=== PATIENT | female | born 1990 | race Caucasian/White ===

== ENCOUNTER 2017-04-23 23:49 | Day surgery (SDC) | payer SELFPAY ==
[~2017-04-23] VITALS: Ht 157.5 cm; Wt 50.0 kg
[2017-04-24] VITALS (8 sets, daily range): BP systolic 99–116; BP diastolic 56–73
[2017-04-24] MEDS ORDERED: NS 1,000 ML IV ONE (01:15)
[2017-04-24 01:18] LABS: BASO # 0.1 10^3/uL (0.0-0.2); BASO % 0.3 % (0.0-1.0); EOS % 0.2 % (0.0-3.0); IMMATURE GRANULOCYTE % 0.4 % (0-0); LYMPH # 1.1 10^3/uL (1.5-6.5); LYMPH % 7.2 % (24.0-44.0); MEAN CORPUSCULAR HEMOGLOBIN 31.6 pg (27.0-33.0); MEAN CORPUSCULAR HGB CONC 34.4 g/dl (32.0-36.5); MONO # 0.9 10^3/uL (0.0-0.8); MONO % 5.7 % (0.0-5.0); NEUTROPHILS # 13.7 10^3/uL (1.8-7.7); NEUTROPHILS % 86.2 % (36.0-66.0); PLATELET COUNT, AUTOMATED 251 10^3/uL (150-450); RED CELL DISTRIBUTION WIDTH 11.6 % (11.5-14.5); WHITE BLOOD COUNT 15.9 10^3/uL (4.0-10.0)
[2017-04-24 01:29] LABS: ALBUMIN 4.1 GM/DL (3.2-5.2); ALBUMIN/GLOBULIN RATIO 1.08 (1.00-1.93); ALKALINE PHOSPHATASE 48 U/L (45-117); ALT/SGPT 13 U/L (12-78); ANION GAP 7 MEQ/L (8-16); AST/SGOT 15 U/L (7-37); BILIRUBIN,DIRECT 0.1 MG/DL (0.0-0.2); BILIRUBIN,TOTAL 0.8 MG/DL (0.2-1.0); BLOOD UREA NITROGEN 9 MG/DL (7-18); CARBON DIOXIDE LEVEL 26 MEQ/L (21-32); CHLORIDE LEVEL 107 MEQ/L (98-107); GLOMERULAR FILTRATION RATE > 60.0 (>60); GLUCOSE, FASTING 93 MG/DL (70-105); POTASSIUM SERUM 3.5 MEQ/L (3.5-5.1); SODIUM LEVEL 140 MEQ/L (136-145); TOTAL PROTEIN 7.9 GM/DL (6.4-8.2)
[2017-04-24 01:32] LABS: CONTROL LINE UCG INT CTR LINE PRESENT
[2017-04-24] MEDS ORDERED: ISOVUE-370 76% 100ML VIAL (Q9967) As Ordered ONE (01:47)
--- NOTE | 2017-04-24 03:20 | REPUSA ---
CLINICAL HISTORY: Abdominal pain. TECHNIQUE: Multiple axial, sagittal and coronal CT images were obtained through the abdomen and pelvi s after administration of intravenous contrast material. COMMENTS: Enlarged appendix measuring 1.2 cm in its largest transverse dimension. Abnormal enhancement and thickening of the wall of the appendix. Surrounding fat stranding and small amount of free fluid in the pelvis. Fluid-filled small bowel, probably mild ileus. The liver is of uniform attenuation without mass or defect. There is no intra or extrahepatic biliary ductal dilatation. The spleen is normal. The gallbladder is within normal limits. The pancreas is of normal contour and attenuation characteristics. There is no evidence of adrenal mass. Both kidneys demonstrate prompt and equal nephrograms. The kidneys are normal in size, shape and conf iguration. There is no evidence of renal or ureteral mass. No renal or ureteral calculi are identifie d. There is no hydroureter or hydronephrosis. There is no bowel wall thickening. No evidence for small or large bowel obstruction. There is no henok dence of abdominal ascites or lymphadenopathy. There is no evidence of intrinsic or extrinsic bladder mass. There is no pelvic ascites or lymphadeno chelle. Images of the lung bases show no evidence of pleural or parenchymal mass. There are no pleural effusi ons. The bony structures are free of lytic or blastic lesions. IMPRESSION: Acute appendicitis. No perforation or abscess formation. Thickened bladder, probably reactive cystitis. Reactive small bowel ileus. Thank you for your kind referral of this patient.
[2017-04-24] MEDS ORDERED: PIPERACILLIN/TAZOBACTAM SOD 3.375 GM in D5W 50 ML IV ONE (03:45)
[2017-04-24] MEDS ORDERED: ONDANSETRON 4MG/2ML VIAL (J2405) IV ONE (03:45)
[2017-04-24] MEDS ORDERED: MORPHINE 4 MG/ML 1ML SYRINGE IV PRN (03:45)
[2017-04-24] MEDS ORDERED: IBUPOTC PO (03:53)
[2017-04-24] MEDS ORDERED: LIDOCAINE 2% INJ 100 MG/5 ML SDV (FOR ANES.) As Ordered ONE (04:31)
[2017-04-24] MEDS ORDERED: ROCURONIUM BROMIDE 50 MG/5 ML VIAL/SYRINGE As Ordered ONE (04:31)
[2017-04-24] MEDS ORDERED: PROPOFOL 200 MG/20 ML VIAL As Ordered ONE (04:31)
[2017-04-24] MEDS ORDERED: fentaNYL 100 MCG/2 ML INJECTION (J3010) As Ordered ONE ×2 (04:32→06:10)
[2017-04-24] MEDS ORDERED: MIDAZOLAM INJ 2 MG/2 ML VIAL (J2250) As Ordered ONE (04:32)
[2017-04-24] MEDS ORDERED: BUPIVACAINE/EPIN 0.25% 30 ML VIAL As Ordered ONE (04:54)
[2017-04-24] MEDS ORDERED: PHENYLephrine HCL 500 MCG/5 ML (100MCG/ML) SYRINGE (J2370) As Ordered ONE (05:41)
[2017-04-24] MEDS ORDERED: ONDANSETRON 4MG/2ML VIAL (J2405) As Ordered ONE (05:49)
[2017-04-24] MEDS ORDERED: KETOROLAC 60 MG/2 ML VIAL (J1885) As Ordered ONE (05:49)
[2017-04-24] MEDS ORDERED: NEOSTIGMINE 10 MG/10 ML VIAL (J2710) As Ordered ONE (05:50)
[2017-04-24] MEDS ORDERED: GLYCOPYRROLATE INJ 0.2 MG/ML 2 ML VIAL As Ordered ONE (05:50)
[2017-04-24] MEDS: KETOROLAC 30 MG/ML VIAL (J1885) IV SCH ×3 (06:00→18:07)
[2017-04-24] MEDS ORDERED: METOCLOPRAMIDE INJ 10MG/2ML VIAL (J2765) IV PRN (06:30)
[2017-04-24] MEDS ORDERED: PERCOCET 5MG/325MG TAB PO PRN (06:30)
[2017-04-24] MEDS ORDERED: LR 1,000 ML IV SCH ×2 (06:30→07:00)
[2017-04-24] MEDS ORDERED: fentaNYL 100 MCG/2 ML INJECTION (J3010) IV PRN (06:30)
[2017-04-24] MEDS ORDERED: ONDANSETRON 4MG/2ML VIAL (J2405) IV PRN ×2 (06:30→07:15)
[2017-04-24] MEDS ORDERED: MORPHINE 2 MG/ML 1ML SYRINGE IV PRN (07:00)
[2017-04-24] MEDS: NORCO, ANEXSIA 5/325MG TABLET (HYDROcodone/ACETAMINOPHEN) PO PRN ×2 (13:04→21:20)
[2017-04-24] MEDS ORDERED: SLF 3 ML SYR IV PRN (15:45)
[2017-04-24] MEDS ORDERED: SLF 3 ML SYR IV SCH (22:00)
== END 2017-04-24 22:30 | disposition home or self-care (01) ==
LOC: M ED 23:49 → M SDC 04-24 04:24 → M PED 04-24 07:30 → M SDC 04-24 22:30
PROVIDERS: ATTEND Surgery
DX: K35.89 Other acute appendicitis (principal)
CPT/HCPCS: 36415; 44970; 74177; 80048; 80076; 81001; 83690; 84703; 85025; 88304; 96361; 96374; 96375; 96376; 99284; J1885; J2250; J2370; J2405; J2543; J2710; J3010; Q9967

== ENCOUNTER 2018-04-15 21:34 | Emergency (ER) | payer SELFPAY ==
[2018-04-15] MEDS: KETOROLAC 30 MG/ML VIAL (J1885) IV (22:18)
[2018-04-15 22:22] LABS: BASO % 0.4 % (0.0-1.0); EOS # 0.1 10^3/uL (0.0-0.50); EOS % 2.1 % (0.0-3.0); HEMATOCRIT 39.5 % (36.0-47.0); HEMOGLOBIN 13.1 g/dl (12.0-15.5); IMMATURE GRANULOCYTE % 0.4 % (0-3.0); LYMPH # 1.6 10^3/uL (1.5-6.5); LYMPH % 31.2 % (24.0-44.0); MEAN CORPUSCULAR HEMOGLOBIN 31.6 pg (27.0-33.0); MEAN CORPUSCULAR HGB CONC 33.2 g/dl (32.0-36.5); MEAN CORPUSCULAR VOLUME 95.2 fl (80.0-96.0); MONO # 0.5 10^3/uL (0.0-0.8); NEUTROPHILS # 2.9 10^3/uL (1.8-7.7); NEUTROPHILS % 56.9 % (36.0-66.0); PLATELET COUNT, AUTOMATED 225 10^3/uL (150-450); RED BLOOD COUNT 4.15 10^6/uL (4.00-5.40); RED CELL DISTRIBUTION WIDTH 11.4 % (11.5-14.5); WHITE BLOOD COUNT 5.1 10^3/uL (4.0-10.0)
[2018-04-15 22:35] LABS: D-DIMER QUANT 329.6 ng/ml (<500)
[2018-04-15 23:12] LABS: ANION GAP 7 MEQ/L (8-16); BLOOD UREA NITROGEN 12 MG/DL (7-18); CALCIUM LEVEL 8.8 MG/DL (8.5-10.1); CARBON DIOXIDE LEVEL 28 MEQ/L (21-32); CHLORIDE LEVEL 105 MEQ/L (98-107); CPK CREATINE PHOSPHOKINASE 104 U/L (26-192); CREATININE FOR GFR 0.57 MG/DL (0.55-1.30); GLOMERULAR FILTRATION RATE > 60.0 (>60); GLUCOSE, FASTING 103 MG/DL (70-100); HCG, SERUM QUANTITATIVE < 1.0 MIU/ML; MB/CK RELATIVE INDEX 1.15 (< OR =4); POTASSIUM SERUM 3.9 MEQ/L (3.5-5.1); SODIUM LEVEL 140 MEQ/L (136-145); TROPONIN I < 0.02 NG/ML (< 0.10)
== END 2018-04-15 23:50 | disposition home or self-care (01) ==
LOC: M ED 21:34
DX: R07.89 Other chest pain (principal)
CPT/HCPCS: J1885

== ENCOUNTER 2019-01-03 16:11 | Emergency (ER) | payer SELFPAY ==
[~2019-01-03] VITALS: Ht 157.5 cm; Wt 52.3 kg
[~2019-01-03 16:11] MED LIST: IBUPOTC PO
[2019-01-03 17:41] LABS: APPEARANCE, URINE CLEAR (CLEAR); BACTERIA, URINE AUTO NEGATIVE (NEGATIVE); BILIRUBIN, URINE AUTO NEGATIVE (NEGATIVE); BLOOD, URINE BLOOD 2+ (NEGATIVE); COLOR, URINE YELLOW (YELLOW); GLUCOSE, URINE (UA) AUTO NEGATIVE (NEGATIVE); KETONE, URINE AUTO NEGATIVE (NEGATIVE); LEUKOCYTE ESTERASE, URINE AUTO NEGATIVE (NEGATIVE); NITRITE, URINE AUTO NEGATIVE (NEGATIVE); PROTEIN, URINE AUTO NEGATIVE (NEGATIVE); RBC, URINE AUTO 1 /HPF (0-3); SPECIFIC GRAVITY URINE AUTO 1.009 (1.002-1.035); SQUAMOUS EPITHELIAL CELL UR AU 1 /HPF (0-6); UROBILINOGEN, URINE AUTO 0.2 mg/dL (0.0-2.0); WBC, URINE AUTO 1 /HPF (0-3)
[2019-01-03 18:56] VITALS: BP 105/64
--- NOTE | 2019-01-03 19:26 | REPVR ---
EXAM: US , Transvaginal EXAM DATE/TIME: 01/03/2019 5:29 PM CLINICAL HISTORY: 28 years old, female; complicated by abdominal or pelvic pain; Right upper quadrant; First trimester; Gestational age or lmp: 5wks; ; Additional info: 5 weeks , trauma TECHNIQUE: Imaging protocol: Real-time transvaginal obstetrical ultrasound of the maternal pelvis and a first trimester with image documentation. Transvaginal imaging was used for better evaluation of the fetus and adnexa. COMPARISON: No relevant prior studies available. FINDINGS: Other findings: No adnexal mass. GESTATION: Gestation: No pole. No gestational sac. No yolk sac. Heart rate: No cardiac activity detected. MATERNAL: Uterus: Uterus measures 7.2 x 4.3 x 5.8 cm. Endometrial echocomplex measures 11.6 mm maximally. Intraperitoneal: Minimal free fluid in the cul-de-sac. IMPRESSION: Empty uterus in a patient who is reportedly . Finding may indicate very early IUP prior to visualization of a gestational sac or fetus. Correlation with serial beta-hCG levels and follow ultrasound recommended in order to exclude ectopic verses very early or early failure. Electronically signed by: Chris Flores On 01/03/2019 19:25:59 PM
--- NOTE | 2019-01-05 07:51 | REP ---
Chest, single PA view: Comparison is 04/15/2018. There is no pneumothorax, hemothorax or pulmonary contusion. No fractures are identified. Lung toscano are clear. Cardiac size is normal. The paula, mediastinum, skeletal structures are unremarkable. There is no interval change. Impression: Negative PA chest. Electronically Signed by Denton Ceballos MD 01/04/2019 08:07 A
== END 2019-01-03 20:27 | disposition home or self-care (01) ==
LOC: M ED 16:11
DX: O9A.211 Injury, poisoning and certain other consequences of external causes complicating pregnancy, first trimester (principal); S30.810A Abrasion of lower back and pelvis, initial encounter; S30.0XXA Contusion of lower back and pelvis, initial encounter; X58.XXXA Exposure to other specified factors, initial encounter; Y92.89 Other specified places as the place of occurrence of the external cause; Z3A.01 Less than 8 weeks gestation of pregnancy

== ENCOUNTER 2019-10-18 00:20 | Inpatient (IN) | payer SELFPAY ==
[2019-10-18] VITALS (29 sets, daily range): BP systolic 50–123; BP diastolic 27–71
[~2019-10-18] VITALS: Ht 157.5 cm; Wt 80.0 kg
[2019-10-18] MEDS ORDERED: LR 1,000 ML IV SCH (01:20)
[2019-10-18] MEDS ORDERED: LACTATED RINGER'S 1000 ML IV STA (01:20)
[2019-10-18] MEDS ORDERED: OXYTOCIN DRIP 30 UNITS in IV 1 EA IV SCH (01:24)
[2019-10-18] MEDS ORDERED: ACETAMINOPHEN 500 MG TAB PO PRN (01:30)
[2019-10-18] MEDS ORDERED: METHYLERGONOVINE MALEATE 0.2 MG TAB PO PRN (01:30)
[2019-10-18] MEDS ORDERED: OXYTOCIN INJ 10 UNITS/ML VIAL (J2590) IM ONE (01:30)
[2019-10-18] MEDS ORDERED: IBUPROFEN 600 MG TAB PO PRN (01:30)
[2019-10-18] MEDS ORDERED: DOCUSATE SODIUM 100 MG CAP PO PRN (01:30)
[2019-10-18] MEDS ORDERED: RHOGAM 300 MCG (1500 IU) INJ (J2790) IM SCH (01:30)
[2019-10-18] MEDS ORDERED: LIDOCAINE 1% MDV 20ML VIAL INFIL ONE (01:30)
[2019-10-18] MEDS ORDERED: DIBUCAINE 1% OINTMENT 30GM TOP PRN (01:30)
[2019-10-18] MEDS ORDERED: ANUSOL HC CREAM 30GM TOP PRN (01:30)
[2019-10-18] MEDS ORDERED: MOM 30ML SUSPENSION UDC PO PRN (01:30)
[2019-10-18] MEDS ORDERED: MEASLES,MUMPS,RUBELLA VACCINE INJ (MMR-II) (90707) SC SCH (01:30)
[2019-10-18] MEDS ORDERED: IBUPROFEN 800 MG TAB PO PRN (01:30)
[2019-10-18 01:32] LABS: HEMATOCRIT 28.4 % (36.0-47.0); HEMOGLOBIN 9.6 g/dl (12.0-15.5); MEAN CORPUSCULAR HEMOGLOBIN 33.3 pg (27.0-33.0); MEAN CORPUSCULAR HGB CONC 33.8 g/dl (32.0-36.5); MEAN CORPUSCULAR VOLUME 98.6 fl (80.0-96.0); PLATELET COUNT, AUTOMATED 193 10^3/uL (150-450); RED BLOOD COUNT 2.88 10^6/uL (4.00-5.40); WHITE BLOOD COUNT 12.5 10^3/uL (4.0-10.0)
[2019-10-18 01:33] LABS: CORD GAS ABE A -2.3; CORD GAS ABE V -1.9; CORD GAS HCO3 A 24.7 MEQ/L; CORD GAS HCO3 V 22.7 MEQ/L; CORD GAS O2 SAT A 44.6 %; CORD GAS O2 SAT V 55.1 %; CORD GAS PCO2 A 50.4 mmHg; CORD GAS PCO2 V 38.4 mmHg; CORD GAS PH A 7.308 UNITS; CORD GAS PH V 7.389 UNITS; CORD GAS PO2 A 20.7 mmHg; CORD GAS PO2 V 23.4 mmHg; CORD GAS SBC A 21.2 MEQ/L; CORD GAS SBC V 21.8 MEQ/L; CORD GAS TCO2 A 26.2 MEQ/L; CORD GAS TCO2 V 23.8 MEQ/L
--- NOTE | 2019-10-18 01:52 | HPEPDOC ---
Obstetrical History & Physical General Date of Admission October 18, 2019 at 00:20 History of Present Illness 29-year-old 2, para 1 who presents at 38 weeks 4 days estimated gestational age with complaints of contractions. She presents as unregistered patient. She is [employer] descent. 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 Initially, her care with Amelie Dobson Chief Complaint: Contractions, term Information Provided By: Patient Age: 29 : 2 Term: 1 Dating Final EDC: October 23, 2019 Final EDC by: LMP Past Medical History Past Obstetrical History : Past Obstetrical History: Multigravida Type of Delivery: Spontaneous Vaginal Del. Sex of : Female Past Medical History Surgical History: Appendectomy Social History Marital Status: Psychosocial History: No pertinent psych hx * Smoker: non-smoker Alcohol: Denies Drugs: denies Allergies Coded Allergies: No Known Allergies (Unverified , 04/23/17) Physical Examination Physical Examination GENERAL: Alert and oriented times three. BREAST: . ABDOMEN: Gravid and non-tender to touch. FETUS: Is vertex (VTX) by sterile vaginal examination (SVE), fetus is vertex (VTX) by Héctor. Laboratory Data [facility] Laboratory Tests 2 10/18/19 00:58: Cord Arterial Blood pH 7.308, Cord Arterial Blood PCO2 50.4, Cord Arterial Blood PO2 20.7, Cord Arterial Blood HCO3 24.7, Cord Arterial Blood Total CO2 26.2, Cord Arterial Blood Base Excess -2.3, Cord Arterial Base Excess (Standard 21.2, Cord Arterial Bld Oxygen Saturation 44.6, Cord Venous Blood pH 7.389, Cord Venous Blood PCO2 38.4, Cord Venous Blood PO2 23.4, Cord Venous Blood HCO3 22.7, Cord Venous Blood Total CO2 23.8, Cord Venous Base Excess (Actual) -1.9, Cord Venous Base Excess (Standard) 21.8, Cord Venous Blood Oxygen Saturation 55.1 10/18/19 01:10: Nucleated Red Blood Cells % (auto) 0.0 CBC/BMP Laboratory Tests 10/18/19 01:10 Vaginal Examination Dilation: 8 cm Effacement: 100% Station: 0 Cervical Consistency: Soft Cervical Position: Anterior Assessment/Plan Assessment 29-year-old 2, para 1 in active labor Known esophageal and cardiac anomaly -Dr. Herron neonatologists notified requested delivery. -Anticipate precipitous delivery Plan Admit and orient. Patient Safety Tech and consent. Labs and intravenous (IV) per unit protocol. Anticipate normal spontaneous delivery (). C-S as appropriate. SOFI AARON MD. October 18, 2019 01:52
--- NOTE | 2019-10-18 01:55 | DNPDOC ---
[facility] Delivery Note Delivery Note DATE OF DELIVERY: 10/18/2019 TIME OF : 0050 GENDER:, Male. APGARS: 1, 3, 6. WEIGHT: 2974 grams LACERATIONS:. Clitoris laceration ANESTHESIA:. None. ESTIMATED BLOOD LOSS:. 1500 mL COUNTS: 5 laparotomy sponges accounted for prior to after delivery. Three sharps removed delivery field. COMPLICATION: hemorrhage due to clitoris laceration GASSES: 7.3 and 7.38 with base excess is -2.3, -1.9 respectively DELIVERY NOTE: 10/18/2019, had a spontaneous vaginal delivery of viable male , Apgars 1, 3 and 6. Head was delivered occiput anterior (OA). Nuchal cord was manually reduced followed by delivery of the shoulders and corpus. Cord was clamped times two and was cut by the father of baby under my direction. Infant was taken to the warmer where NICU staff awaited. Placenta was then drained and delivered grossly intact. A premixed bag of 500 mL of normal saline with 30 units of Pitocin was then bolused along with uterine massage until the uterus was firm. On inspection, there was brisk vaginal bleeding from a clitoris laceration. This was quickly infused with 1% lidocaine with the [id number] stitch was placed for hemostasis by that time, there was appro ximately 1500 mL blood loss. On reinspection, cervix, vagina, perineum was grossly intact and hemostatic. Patient was noted to be hypotensive at this time and tachycardic. Instructions was given to place IV with IV bolus. Patient was typed and cross 4 units of packed red blood cells. 2 units of packed red blood cells was rapidly infused over 10 minutes. Cheondoism of patient's blood pressure and pulse. Patient remained in labor and delivery for monitoring. Anticipate given another units of packed red blood cell. was stabilized and was sent to SOFI Webb MD. October 18, 2019 01:55
[2019-10-18] MEDS ORDERED: diphenhydrAMINE 25MG CAP PO ONE (02:15)
[2019-10-18] MEDS: ACETAMINOPHEN TAB 650MG DOSE (2X325MG) PO PRN ×2 (02:17→05:21)
[2019-10-18] MEDS ORDERED: OXYTOCIN 30 UNITS IN 0.9% NaCl 500ML IV BAG (J2590) As Ordered ONE (05:25)
[2019-10-18 06:41] LABS: HEMATOCRIT 24.6 % (36.0-47.0); HEMOGLOBIN 8.5 g/dl (12.0-15.5); MEAN CORPUSCULAR HEMOGLOBIN 32.6 pg (27.0-33.0); MEAN CORPUSCULAR HGB CONC 34.6 g/dl (32.0-36.5); MEAN CORPUSCULAR VOLUME 94.3 fl (80.0-96.0); PLATELET COUNT, AUTOMATED 136 10^3/uL (150-450); RED BLOOD COUNT 2.61 10^6/uL (4.00-5.40)
[2019-10-18] MEDS ORDERED: PRENATAL VITAMINS CHEWABLE TABLET PO SCH (09:00)
[2019-10-18 14:21] LABS: HEMATOCRIT 27.9 % (36.0-47.0); HEMOGLOBIN 9.6 g/dl (12.0-15.5); MEAN CORPUSCULAR HEMOGLOBIN 31.7 pg (27.0-33.0); MEAN CORPUSCULAR HGB CONC 34.4 g/dl (32.0-36.5); MEAN CORPUSCULAR VOLUME 92.1 fl (80.0-96.0); PLATELET COUNT, AUTOMATED 145 10^3/uL (150-450); RED BLOOD COUNT 3.03 10^6/uL (4.00-5.40); WHITE BLOOD COUNT 17.2 10^3/uL (4.0-10.0)
== END 2019-10-18 17:00 | disposition home or self-care (01) | DRG 560 ==
LOC: M LDI 00:20 → M OBS 09:42
PROVIDERS: ADMIT Obstetrics & Gynecology; ATTEND Obstetrics & Gynecology
PROC: 10E0XZZ Delivery of Products of Conception, External Approach (ICD-10-PCS; principal; 2019-10-18)
PROC: 0HQ9XZZ Repair Perineum Skin, External Approach (ICD-10-PCS; 2019-10-18)
PROC: 30233N1 Transfusion of Nonautologous Red Blood Cells into Peripheral Vein, Percutaneous Approach (ICD-10-PCS; 2019-10-18)
DX: O62.3 Precipitate labor (principal); O69.81X0 Labor and delivery complicated by cord around neck, without compression, not applicable or unspecified; O72.1 Other immediate postpartum hemorrhage; O70.0 First degree perineal laceration during delivery; Z37.0 Single live birth; Z3A.38 38 weeks gestation of pregnancy; I95.9 Hypotension, unspecified; R00.0 Tachycardia, unspecified; O99.89 Other specified diseases and conditions complicating pregnancy, childbirth and the puerperium

== ENCOUNTER 2024-06-23 13:20 | Outpatient (CLI) | payer SELFPAY ==
[~2024-06-23] VITALS: Ht 157.5 cm; Wt 77.3 kg
[2024-06-23] MEDS ORDERED: PRENTAB9 PO (13:42)
[2024-06-23] MEDS ORDERED: CALC500C16 PO (13:42)
[2024-06-23] MEDS ORDERED: K 10100T PO (13:42)
[2024-06-23] MEDS ORDERED: EQL50TAB2 PO (13:42)
[2024-06-23 13:44] VITALS: BP 109/74
[2024-06-23 16:05] VITALS: BP 112/63
== END 2024-06-23 20:41 | disposition home or self-care (01) ==
LOC: M LDO 13:20
PROVIDERS: ATTEND Obstetrics & Gynecology
DX: O40.3XX9 Polyhydramnios, third trimester, other fetus (principal); O35.1 Maternal care for (suspected) chromosomal abnormality in fetus; Z3A.39 39 weeks gestation of pregnancy
CPT/HCPCS: 59025; 76811; 76820; G0463

== ENCOUNTER 2024-06-25 07:10 | Inpatient (IN) | payer SELFPAY ==
[~2024-06-25] VITALS: Ht 157.5 cm; Wt 78.5 kg
[2024-06-25] VITALS (9 sets, daily range): BP systolic 102–119; BP diastolic 64–72; TEMP 98.5; O2SAT 97–100
[~2024-06-25 07:10] MED LIST changes: +CALC500C16 PO; +EQL50TAB2 PO; +K 10100T PO; +PRENTAB9 PO
[2024-06-25 08:47] LABS: HEMATOCRIT 33.4 % (36.0-47.0); HEMOGLOBIN 11.4 g/dl (12.0-15.5); MEAN CORPUSCULAR HEMOGLOBIN 33.2 pg (27.0-33.0); MEAN CORPUSCULAR HGB CONC 34.1 g/dl (32.0-36.5); MEAN CORPUSCULAR VOLUME 97.4 fl (80.0-96.0); PLATELET COUNT, AUTOMATED 165 10^3/uL (150-450); RED BLOOD COUNT 3.43 10^6/uL (4.00-5.40); WHITE BLOOD COUNT 8.3 10^3/uL (4.0-10.0)
[2024-06-25] MEDS: DOCUSATE SODIUM 100MG CAPSULE PO SCH (09:00)
[2024-06-25] MEDS: PRENATAL VITAMINS CHEWABLE TABLET PO SCH (09:00)
[2024-06-25] MEDS ORDERED: TRANEXAMIC ACID INJection 1,000 MG in NS 100 ML IV PRN (09:05)
[2024-06-25] MEDS ORDERED: METHYLERGONOVINE MALEATE 0.2MG/ML 1ML VIAL IM PRN (09:05)
[2024-06-25] MEDS ORDERED: LIDOCAINE 1% MDV 20ML VIAL INFIL PRN (09:05)
[2024-06-25] MEDS ORDERED: CARBOPROST TROMETHAMINE 250 MCG/ML AMP IM PRN (09:05)
[2024-06-25] MEDS ORDERED: OXYTOCIN DRIP 30 UNITS in IV 1 EA IV PRN (09:05)
[2024-06-25] MEDS: BICITRA 30ML SOLN UDC PO ONE (09:30)
[2024-06-25] MEDS: ceFAZolin SOD 2 GM in IV 1 EA IV ONE (09:30)
[2024-06-25] MEDS: AZITHROMYCIN INJ 500 MG, VIAL MATE ADAPTER 1 EACH in NS 250 ML IV ONE (09:30)
[2024-06-25] MEDS: LACTATED RINGER'S 1000 ML IV STA (09:47)
[2024-06-25] MEDS: LR 1,000 ML IV SCH ×2 (09:47→22:06)
[2024-06-25] MEDS ORDERED: OXYTOCIN 30UNITS IN 0.9% NaCl 500ML IV BAG As Ordered ONE (10:11)
[2024-06-25] MEDS ORDERED: ACETAMINOPHEN 1000MG/100ML IV BAG As Ordered ONE (10:11)
[2024-06-25] MEDS ORDERED: SUCCINYLCHOLINE 100MG/5ML SYRINGE As Ordered ONE (10:11)
[2024-06-25] MEDS ORDERED: TRANEXAMIC ACID 100 MG/ML 10ML VIAL As Ordered ONE (10:11)
[2024-06-25] MEDS ORDERED: propofoL 200 MG/20 ML VIAL As Ordered ONE (10:11)
[2024-06-25] MEDS ORDERED: ePHEDrine SULFATE 25 MG/5 ML(5MG/ML) SYRINGE As Ordered ONE (10:11)
[2024-06-25] MEDS ORDERED: PHENYLephrine 500MCG 5ML (100MCG/ML) SYRINGE As Ordered ONE (10:11)
[2024-06-25] MEDS ORDERED: ONDANSETRON 4MG 2ML VIAL As Ordered ONE (10:11)
[2024-06-25] MEDS ORDERED: MORPHINE PRES-FREE INJ 10 MG/10 ML VIAL As Ordered ONE (10:11)
[2024-06-25] MEDS ORDERED: PERCOCET 5MG/325MG TAB PO PRN (11:30)
[2024-06-25] MEDS ORDERED: ANUSOL HC CREAM 30GM TOP PRN (11:30)
[2024-06-25] MEDS ORDERED: RHOGAM 300MCG (1500IU) INJ IM SCH (11:30)
[2024-06-25] MEDS ORDERED: CALCIUM CARBONATE 500 MG CHEW U/D PO PRN (11:30)
[2024-06-25] MEDS ORDERED: MORPHINE 4 MG/ML 1ML VIAL IV PRN (11:30)
[2024-06-25] MEDS ORDERED: IBUP80TA PO (11:43)
[2024-06-25] MEDS ORDERED: PERCOCET PO (11:43)
[2024-06-25] MEDS ORDERED: COLA100C5 PO (11:43)
[2024-06-25] MEDS: OXYTOCIN DRIP 30 UNITS in IV 1 EA IV SCH (12:51)
[2024-06-25] MEDS: KETOROLAC 30 MG/ML 1ML VIAL IV SCH (15:29)
[2024-06-25] MEDS: ONDANSETRON 4MG 2ML VIAL IV PRN (18:33)
[2024-06-25 19:09] LABS: HIV 1&2 SCREEN NEGATIVE (NEGATIVE)
[2024-06-25 19:17] LABS: HEPATITIS C VIRUS ABY INDEX < 0.02 INDEX (<0.8)
[2024-06-26 02:27] VITALS: BP 97/54; O2SAT 97
[2024-06-26 06:00] VITALS: BP 98/68; O2SAT 98
[2024-06-26 07:45] LABS: HEMATOCRIT 31.7 % (36.0-47.0); HEMOGLOBIN 10.6 g/dl (12.0-15.5); MEAN CORPUSCULAR HEMOGLOBIN 33.7 pg (27.0-33.0); MEAN CORPUSCULAR HGB CONC 33.4 g/dl (32.0-36.5); MEAN CORPUSCULAR VOLUME 100.6 fl (80.0-96.0); PLATELET COUNT, AUTOMATED 121 10^3/uL (150-450); RED BLOOD COUNT 3.15 10^6/uL (4.00-5.40); WHITE BLOOD COUNT 8.9 10^3/uL (4.0-10.0)
[2024-06-26 10:00] VITALS: BP 104/64; O2SAT 97
[2024-06-26 14:00] VITALS: BP 114/70; O2SAT 100
[2024-06-26] MEDS: PERCOCET 5MG/325MG TAB PO PRN (15:44)
[2024-06-26] MEDS: SIMETHICONE 80MG CHEW TAB PO PRN (15:44)
[2024-06-26] MEDS: IBUPROFEN 800 MG TAB PO SCH (17:00)
[2024-06-26 18:00] VITALS: BP 129/79; O2SAT 97
[2024-06-26 22:00] VITALS: BP 91/53; O2SAT 96
[2024-06-27 02:00] VITALS: BP 102/67; O2SAT 96
[2024-06-27 06:00] VITALS: BP 121/70; O2SAT 97
[2024-06-27] MEDS ORDERED: MEASLES,MUMPS,RUBELLA VACCINE INJ (MMR-II) SC.IMMUN ONE (09:00)
== END 2024-06-27 10:50 | disposition home or self-care (01) | DRG 540 ==
LOC: M LDI 07:10 → M OBS 13:25
PROVIDERS: ADMIT Specialist; ATTEND Obstetrics & Gynecology
PROC: 10D00Z1 Extraction of Products of Conception, Low, Open Approach (ICD-10-PCS; principal; 2024-06-25 09:30)
DX: O40.3XX0 Polyhydramnios, third trimester, not applicable or unspecified (principal); O36.23X0 Maternal care for hydrops fetalis, third trimester, not applicable or unspecified; Z37.0 Single live birth; Z3A.39 39 weeks gestation of pregnancy